=== PATIENT | female | born 1955 | race Caucasian/White ===

== ENCOUNTER → 2022-12-31 | Outpatient (CLI) | payer MEDICARE, BC ==
--- NOTE | 2023-01-07 13:44 | Diagnostic Imaging Report ---
Indication: Routine screening. Comparison is made with prior mammogram 11/11/2020. 2-D and 3-D bilateral screening mammography was performed with CAD. Both breasts are heterogeneously dense, limiting the sensitivity of mammography. Cluster of microcalcifications in the central right breast may be slightly more numerous on today's study. These appear to be superiorly located on the MLO view. Additional views are recommended. Calcifications in the upper left breast appear about the same. No masses are seen. Axillae are unremarkable. IMPRESSION: BI-RADS 0 Right breast calcifications. Additional views are recommended for further evaluation. ACR BI-RADS Category 0: Incomplete. (Needs additional imaging evaluation). Result letter will be mailed to the patient. Note: At least 10% of breast cancer is not imaged by mammography. Dictated by: Dictated on workstation # [id number]
== END ==
LOC: RAD 14:41
PROVIDERS: ATTEND Family Medicine
DX: Z12.31 Encounter for screening mammogram for malignant neoplasm of breast (principal); N64.9 Disorder of breast, unspecified
CPT/HCPCS: 77063; 77067

== ENCOUNTER → 2023-01-05 | Outpatient (CLI) | payer MEDICARE, BC ==
--- NOTE | 2023-01-05 16:27 | Diagnostic Imaging Report ---
INDICATION: Postmenopausal screening for osteoporosis. COMPARISON: None FINDINGS: AP Spine L1-L4: [BMD (g/cm2): 1.332] [T-Score: 1.1] [Z-Score: 2.0] [BMD Previous: na] [BMD % Change: na] LT Hip Neck: [BMD (g/cm2): 0.947] [T-Score: -0.7] [Z-Score: 0.4] LT Hip Total: [BMD (g/cm2):1.052] [T-Score:0.4] [Z-Score: 1.1] [BMD Previous: na] [BMD % Change: na] RT Hip Neck: [BMD (g/cm2):1.004] [T-Score:-0.2] [Z-Score:0.8] RT Hip Total: [BMD (g/cm2):1.098] [T-score:0.7] [Z-Score:1.5] [BMD Previous:na] [BMD % Change:na] *Indicates significant change from prior examination based on 95% confidence level. World Health Organization criteria for BMD interpretation classify patients as Normal (T-score at or above -1.0), Osteopenic (T-score between -1.0 and -2.5) or Osteoporotic (T-score at or below -2.5). LIMITATIONS AND MODIFICATION: None. FRACTURE RISK (FRAX SCORE): The ten year probability of (%): Major Osteoporotic Fracture: [na] Hip Fracture: [na] IMPRESSION: 1. Normal bone mineral density. 2. Baseline examination. 3. See below National Osteoporosis Foundation guidelines on when to potentially initiate pharmacologic therapy. Based on the National Osteoporosis Foundation Guidelines, pharmacologic treatment should be initiated in any of the following, unless clinical conditions suggest otherwise: * Any patient with prior fragility fracture of the hip or vertebrae. A spine fracture indicates 5X risk for subsequent spine fracture and 2X risk for subsequent hip fracture. * Osteoporosis (T-score <-2.5). * Postmenopausal women and men age 50 and older with low bone mass/osteopenia (T-score between -1.0 and -2.5) by DXA and 10-year major osteoporotic fracture greater than 20% or a 10-year probability of hip fracture greater than 3%. These fracture risks are supplied above in the FRAX score, if applicable. * Clinician judgement and/or patient preferences may indicate treatment for people with 10-year fracture probabilities above or below these levels. Dictated by: Dictated on workstation # [id number]
== END ==
LOC: RAD 14:30
PROVIDERS: ATTEND Family Medicine
DX: E55.9 Vitamin D deficiency, unspecified (principal); E89.2 Postprocedural hypoparathyroidism; N95.1 Menopausal and female climacteric states; E21.3 Hyperparathyroidism, unspecified
CPT/HCPCS: 77080

== ENCOUNTER → 2023-01-20 | Outpatient (CLI) | payer MEDICARE, BC ==
--- NOTE | 2023-01-20 13:36 | Diagnostic Imaging Report ---
INDICATION: Right breast calcifications. Patient presents for additional views. COMPARISON: Correlation is made with the prior screening mammogram from 12/31/2022. TECHNIQUE: Unilateral right 2D and 3D diagnostic mammography was performed. This included magnification CC and ML views as well as conventional 90 degree lateral views. FINDINGS: There is a cluster of microcalcifications in the central right breast on the CC view which appears to be superiorly located on the medial lateral views. There may be some linear distribution on the magnification ML view. DCIS cannot be entirely excluded. No soft tissue mass is identified. IMPRESSION: Increasing cluster of microcalcifications in the upper central right breast, concerning for DCIS. Tissue sampling is recommended. These would be amenable to a stereotactic biopsy approach. ACR BI-RADS Category 4: Suspicious abnormality. Dictated by: Dictated on workstation # [id number]
== END ==
LOC: RAD 12:45
PROVIDERS: ATTEND Nurse Practitioner Family
DX: R92.0 Mammographic microcalcification found on diagnostic imaging of breast (principal)
CPT/HCPCS: 77065; G0279

== ENCOUNTER → 2023-01-27 | Outpatient (CLI) | payer MEDICARE, BC ==
[~2023-01-27] VITALS: Ht 172.7 cm; Wt 78.2 kg
[~2023-01-27] MED LIST: LIDOCAINE 1% INJ 10 ML VIAL INJ ONE
--- NOTE | 2023-01-27 18:08 | Diagnostic Imaging Report ---
INDICATION: Right breast calcifications. EXAMINATION: Patient presents for stereotactic biopsy. PROCEDURE: Patient was brought to the serotactic suite and placed anterior in a sitting upright position. The right breast was positioned craniocaudal. The cluster of microcalcifications in the central right breast were stereotactically targeted. All images were viewed on a dedicated workstation. The superior right breast was then prepped and draped in the usual sterile fashion. A small amount of 1% lidocaine was utilized for local anesthesia. The 8-gauge vacuum-assisted needle was advanced into the right breast from a craniocaudal approach and placed per stereotactic coordinates. Four core biopsies were obtained. Specimen radiograph was then obtained demonstrating numerous calcifications within specimen labeled #2 and #3. Marker clip was then deployed. The needle was removed and hemostasis was obtained. Patient tolerated the procedure well and was sent for postprocedure mammogram on dedicated mammographic equipment. 2D CC and ML mammography was performed. Images demonstrated a marker clip in the central right breast. Patient tolerated the procedure well. IMPRESSION: Successful stereotactic biopsy of right breast calcifications utilizing the 8-gauge vacuum-assisted needle. Pathology results are currently pending. Dictated by: Dictated on workstation # [id number]
== END ==
LOC: RAD 10:15
PROVIDERS: ATTEND Family Medicine
DX: R92.8 Other abnormal and inconclusive findings on diagnostic imaging of breast (principal)
CPT/HCPCS: 19081; A4648